=== PATIENT | female | born 1985 | race Caucasian/White ===

== ENCOUNTER 2023-06-01 19:02 | Inpatient (IN) | payer OTHER ==
[~2023-06-01] VITALS: Ht 167.6 cm; Wt 94.3 kg
[2023-06-01 19:46] LABS: BASOPHILS # (AUTO) 0.05 K/uL (0.00-0.20); BASOPHILS % (AUTO) 0.4 % (0.0-5.0); EOSINOPHILS # (AUTO) 0.25 K/uL (0.00-0.70); EOSINOPHILS % (AUTO) 1.9 % (0.0-8.0); HEMATOCRIT 39.3 % (36-48); IMMATURE GRANULOCYTE ABSOLUTE 0.05 K/uL (0-1); LYMPHOCYTES # (AUTO) 2.6 K/uL (1.0-4.8); LYMPHOCYTES % (AUTO) 19.8 % (21.0-51.0); MEAN CORPUSCULAR HEMOGLOBIN 29.5 pg (27.0-33.0); MEAN CORPUSCULAR HGB CONC 33.6 g/dL (32.0-36.0); MEAN CORPUSCULAR VOLUME 87.9 fL (79-99); MONOCYTES # (AUTO) 1.3 K/uL (0.1-1.0); MONOCYTES % (AUTO) 9.7 % (3.0-13.0); NEUTROPHILS # (AUTO) 8.8 K/uL (1.8-7.7); NEUTROPHILS % (AUTO) 67.8 % (40.0-77.0); PLATELET COUNT (AUTO) 368 K/uL (130-400); RED BLOOD CELL COUNT(AUTO) 4.47 MIL/uL (4.00-5.50); RED CELL DISTRIBUTION WIDTH 12.6 % (11.0-15.5)
[2023-06-01 19:55] LABS: CREATININE 0.7 mg/dL (0.5-1.0); MAGNESIUM 1.8 mg/dL (1.80-2.40); POTASSIUM 3.4 mmol/L (3.5-5.1)
[2023-06-01] MEDS: ONDANSETRON 4MG INJ IVP ONE ×2 (20:10→23:23)
[2023-06-01] MEDS: 0.9%NACL 1000ML 1,000 ML IV ONE (20:12)
[2023-06-01] MEDS: 0.9% NACL 500ML IV.SOLN 500 ML IV ONE (22:50)
[2023-06-01] MEDS: MORPHINE 2 MG SYG IVP ONE (23:24)
[2023-06-01 23:43] LABS: APPEARANCE,URINE CLEAR (CLEAR); BILIRUBIN,URINE NEGATIVE (NEGATIVE); COLOR,URINE LIGHT-YELLOW (YELLOW); GLUCOSE, URINE (UA) NEGATIVE (NEGATIVE); KETONES,URINE NEGATIVE (NEGATIVE); LEUKOCYTE ESTERASE ,URINE NEGATIVE Leu/uL (NEGATIVE); NITRATE,URINE NEGATIVE (NEGATIVE); OCCULT BLOOD,URINE NEGATIVE (NEGATIVE); PH,URINE 6.5 (5.0-8.0); PROTEIN,URINE NEGATIVE (NEGATIVE); UROBILINOGEN,URINE 0.2 mg/dL (0.2-1.0)
[2023-06-01 23:46] LABS: HCG,QUALITATIVE URINE NEGATIVE (NEGATIVE)
[2023-06-01 23:49] LABS: ADD UA MICROSCOPIC NO
[2023-06-02] VITALS (7 sets, daily range): BP systolic 99–126; BP diastolic 63–76; PULSE 72–82; RESP 16–20; O2SAT 97–98
[2023-06-02] MEDS ORDERED: LEVOFLOXACIN 750 MG/D5W 150ML BAG IV ONE
[2023-06-02] MEDS ORDERED: LEVE500T9 PO (00:29)
[2023-06-02] MEDS ORDERED: DiphenhydrAMINE HCL 50 MG/ML VIAL IV PRN (00:30)
[2023-06-02] MEDS ORDERED: FAMOTIDINE 20MG VIAL IV PRN (00:30)
[2023-06-02] MEDS ORDERED: ZOLPIDEM TARTRATE 5 MG TAB PO PRN (00:30)
[2023-06-02] MEDS ORDERED: LACTULOSE 20 GM/30 ML UDCUP PO PRN (00:30)
[2023-06-02] MEDS ORDERED: ACETAMINOPHEN 325 MG TAB PO PRN ×2 (00:30)
[2023-06-02] MEDS ORDERED: GUAIFENESIN-DM 200/20 MG 10 ML PO PRN (00:30)
[2023-06-02] MEDS ORDERED: MAG/ALUM/SIMETH 30 ML UDCUP PO PRN (00:30)
[2023-06-02] MEDS ORDERED: HYDRALAZINE 20MG/ML VIAL IV PRN (00:30)
[2023-06-02] MEDS ORDERED: NITROGLYCERIN 0.4 MG SL TAB SL PRN (00:30)
[2023-06-02] MEDS ORDERED: HYDROCODONE/ACETAMINOPHEN 5/325 MG TAB PO PRN (00:30)
[2023-06-02] MEDS ORDERED: TRAZ-185 PO (00:31)
[2023-06-02] MEDS ORDERED: CETI10CA5 PO (00:32)
[2023-06-02] MEDS ORDERED: FAMO20TA8 PO (00:32)
[2023-06-02] MEDS ORDERED: LACO200T4 PO (00:35)
[2023-06-02] MEDS: METRONIDAZOLE 500MG/100ML BAG IV SCH (00:43)
[2023-06-02 01:24] LABS: SQUAMOUS EPITHELIAL CELL,UR RARE /HPF (0-2)
[2023-06-02] MEDS: LEVOFLOXACIN 500 MG/D5W 100 ML 100 ML IV ONE (01:48)
[2023-06-02] MEDS: LACTATED RINGERS 1000ML 1,000 ML IV SCH (02:41)
[2023-06-02] MEDS: TRAZODONE HCL 100 MG TABLET PO SCH (03:04)
[2023-06-02] MEDS: LEVETIRACETAM 500 MG TABLET PO SCH (03:04)
[2023-06-02] MEDS: ACETAMINOPHEN WITH CODEINE 1 TAB TAB PO PRN (05:17)
[2023-06-02] MEDS: INSULIN HUMULIN R 100 UNIT/ML 3ML SQ SCH (06:39)
[2023-06-02] MEDS ORDERED: LACOSAMIDE 200 MG PO SCH (09:00)
[2023-06-02] MEDS ORDERED: FAMOTIDINE 20MG VIAL IV SCH (09:00)
[2023-06-02] MEDS: LEVETIRACETAM 1000 MG PO SCH (09:00)
[2023-06-02] MEDS: HEPARIN 5,000 UNIT VIAL SQ SCH (09:00)
[2023-06-02] MEDS ORDERED: POTASSIUM CHLORIDE 20MEQ/100ML 100 ML IV PRN (10:00)
[2023-06-02] MEDS ORDERED: MAGNESIUM 2GM PREMIX 50ML 50 ML IV PRN (10:00)
[2023-06-02] MEDS: METRONIDAZOLE 500MG/100ML BAG 100 ML IV SCH (10:53)
[2023-06-02] MEDS: CETIRIZINE HCL 5 MG TABLET PO SCH (10:57)
[2023-06-02] MEDS: FAMOTIDINE 20MG TAB PO SCH (10:57)
[2023-06-02] MEDS ORDERED: LEVETIRACETAM 500 MG/5 ML SD VIAL IV SCH ×2 (12:00→21:00)
[2023-06-02] MEDS ORDERED: PHARMACY COMMUNICATION MISC SCH (12:00)
[2023-06-02] MEDS ORDERED: COMPOUND IV MISC 1 EACH IVSOLN MISC PRN (12:30)
[2023-06-02] MEDS: LEVETIRACETAM 1,000 MG in 0.9%NACL 100ML 100 ML IV ONE (12:42)
[2023-06-02] MEDS: LACOSAMIDE 200 MG/20 ML VIAL IV ONE (12:52)
[2023-06-02] MEDS: ONDANSETRON 4MG INJ IV PRN (13:08)
[2023-06-02] MEDS: PHARMACY COMMUNICATION MISC SCH (14:00)
[2023-06-02] MEDS: KETOROLAC 30MG VIAL (30MG/ML) IM ONE (15:55)
[2023-06-02] MEDS: LEVOFLOXACIN 500 MG/D5W 100 ML 100 ML IV SCH (15:55)
[2023-06-02] MEDS: LACOSAMIDE 200 MG/20 ML VIAL IV SCH (20:46)
[2023-06-02] MEDS: TRAZODONE HCL 50 MG TAB PO SCH (20:46)
[2023-06-02] MEDS: LEVETIRACETAM 1,000 MG in 0.9%NACL 100ML IV SCH (20:47)
[2023-06-02] MEDS ORDERED: LACOSAMIDE 200 MG/20 ML VIAL IV SCH (21:00)
[2023-06-02] MEDS ORDERED: LEVETIRACETAM 1,000 MG in 0.9%NACL 100ML 100 ML IV SCH (21:00)
[2023-06-02] MEDS ORDERED: HOME MEDICATION 1 EACH IVP SCH (21:00)
[2023-06-03] VITALS: BP 93/61; PULSE 64; RESP 18
[2023-06-03] MEDS: KETOROLAC 15MG/ML VIAL (15MG/ML) IV PRN (03:33)
[2023-06-03 04:00] VITALS: BP 102/70; PULSE 75; RESP 16
[2023-06-03 05:10] LABS: BASOPHILS # (AUTO) 0.04 K/uL (0.00-0.20); BASOPHILS % (AUTO) 0.4 % (0.0-5.0); EOSINOPHILS # (AUTO) 0.27 K/uL (0.00-0.70); EOSINOPHILS % (AUTO) 2.9 % (0.0-8.0); HEMATOCRIT 32.3 % (36-48); IMMATURE GRANULOCYTE ABSOLUTE 0.03 K/uL (0-1); LYMPHOCYTES # (AUTO) 2.9 K/uL (1.0-4.8); LYMPHOCYTES % (AUTO) 31.3 % (21.0-51.0); MEAN CORPUSCULAR HEMOGLOBIN 30.2 pg (27.0-33.0); MEAN CORPUSCULAR HGB CONC 33.4 g/dL (32.0-36.0); MEAN CORPUSCULAR VOLUME 90.2 fL (79-99); MONOCYTES # (AUTO) 0.8 K/uL (0.1-1.0); MONOCYTES % (AUTO) 8.5 % (3.0-13.0); NEUTROPHILS # (AUTO) 5.2 K/uL (1.8-7.7); NEUTROPHILS % (AUTO) 56.6 % (40.0-77.0); PLATELET COUNT (AUTO) 307 K/uL (130-400); RED BLOOD CELL COUNT(AUTO) 3.58 MIL/uL (4.00-5.50); RED CELL DISTRIBUTION WIDTH 12.4 % (11.0-15.5); WHITE BLOOD COUNT (AUTO) 9.2 K/uL (4.8-10.8)
[2023-06-03 05:36] LABS: ALBUMIN 2.7 g/dL (3.5-5.0); BILIRUBIN,TOTAL 0.3 mg/dL (0.2-1.0); CREATININE 0.7 mg/dL (0.5-1.0); MAGNESIUM 1.7 mg/dL (1.80-2.40); POTASSIUM 3.6 mmol/L (3.5-5.1); TOTAL PROTEIN, SERUM 6.1 g/dL (6.0-8.3)
[2023-06-03 07:56] VITALS: BP 102/69; PULSE 75; RESP 18
[2023-06-03] MEDS: KCL 20 MEQ ERTAB PO ONE (09:55)
[2023-06-03] MEDS: MAGNESIUM 2GM PREMIX 50ML 50 ML IV PRN (09:56)
[2023-06-03] MEDS ORDERED: POTASSIUM CHLORIDE 20MEQ/100ML 100 ML IV PRN (10:00)
[2023-06-03] MEDS ORDERED: POTASSIUM CHLORIDE 10% ELIXIR 20 MEQ/15 ML UDCUP PO PRN (10:00)
[2023-06-03 12:00] VITALS: BP 106/72; PULSE 67; RESP 20
[2023-06-03] MEDS ORDERED: LEVO-70 PO (12:23)
[2023-06-03] MEDS: KCL 20 MEQ ERTAB PO PRN (13:13)
[2023-06-03 13:28] VITALS: O2SAT 98
== END 2023-06-03 15:35 | disposition home or self-care (01) | DRG 392 ==
LOC: EDH 19:02 → OBSVTOIN 23:43 → EDHIP 23:43 → 3CH 06-02 02:00
PROVIDERS: ADMIT Internal Medicine; ATTEND Internal Medicine
DX: K57.32 Diverticulitis of large intestine without perforation or abscess without bleeding (principal); E06.3 Autoimmune thyroiditis; E11.9 Type 2 diabetes mellitus without complications; E28.2 Polycystic ovarian syndrome; E66.01 Morbid (severe) obesity due to excess calories; E86.0 Dehydration; E87.6 Hypokalemia; G40.909 Epilepsy, unspecified, not intractable, without status epilepticus; N83.201 Unspecified ovarian cyst, right side; I10 Essential (primary) hypertension; Z87.820 Personal history of traumatic brain injury; Z91.040 Latex allergy status; Z96.653 Presence of artificial knee joint, bilateral; Z88.0 Allergy status to penicillin; Z88.2 Allergy status to sulfonamides; Z88.8 Allergy status to other drugs, medicaments and biological substances; Z91.041 Radiographic dye allergy status; Z68.33 Body mass index [BMI] 33.0-33.9, adult
CPT/HCPCS: 36415; 71045; 74176; 76830; 80048; 80053; 81003; 81025; 82948; 83690; 83735; 84703; 85025; 87088; 96365; 96375; G0378; J1644; J1885; J1953; J1956; J2270; J2405; J3475; J3480; J3490; G8980-CI; G8983-CI

== ENCOUNTER → 2024-06-09 | Outpatient (CLI) | payer OTHER ==
[~2024-06-09] MED LIST: CETI10CA5 PO; DIAZ10SP2 NS; FAMO20TA8 PO; FLUT16H NASAL; LACO200T4 PO; LEVE500T9 PO; LEVO137C5 PO; LINA290C PO; POLY17PO4 PO; TRAZ-185 PO
[2024-06-09 13:01] LABS: BASOPHILS # (AUTO) 0.08 K/uL (0.00-0.20); BASOPHILS % (AUTO) 0.6 % (0.0-5.0); EOSINOPHILS # (AUTO) 0.28 K/uL (0.00-0.70); EOSINOPHILS % (AUTO) 2.1 % (0.0-8.0); HEMATOCRIT 45.8 % (36-48); IMMATURE GRANULOCYTE ABSOLUTE 0.04 K/uL (0-1); LYMPHOCYTES # (AUTO) 4.9 K/uL (1.0-4.8); LYMPHOCYTES % (AUTO) 36.2 % (21.0-51.0); MEAN CORPUSCULAR HEMOGLOBIN 29.8 pg (27.0-33.0); MEAN CORPUSCULAR VOLUME 90.5 fL (79-99); MONOCYTES # (AUTO) 0.8 K/uL (0.1-1.0); MONOCYTES % (AUTO) 5.7 % (3.0-13.0); NEUTROPHILS # (AUTO) 7.5 K/uL (1.8-7.7); NEUTROPHILS % (AUTO) 55.1 % (40.0-77.0); PLATELET COUNT (AUTO) 427 K/uL (130-400); RED BLOOD CELL COUNT(AUTO) 5.06 MIL/uL (4.00-5.50); RED CELL DISTRIBUTION WIDTH 12.3 % (11.0-15.5); WHITE BLOOD COUNT (AUTO) 13.6 K/uL (4.8-10.8)
[2024-06-09 13:07] LABS: APPEARANCE,URINE CLEAR (CLEAR); BILIRUBIN,URINE NEGATIVE (NEGATIVE); COLOR,URINE COLORLESS (YELLOW); GLUCOSE, URINE (UA) NEGATIVE (NEGATIVE); KETONES,URINE NEGATIVE (NEGATIVE); LEUKOCYTE ESTERASE ,URINE NEGATIVE Leu/uL (NEGATIVE); NITRATE,URINE NEGATIVE (NEGATIVE); OCCULT BLOOD,URINE NEGATIVE (NEGATIVE); PROTEIN,URINE NEGATIVE (NEGATIVE); UROBILINOGEN,URINE 0.2 mg/dL (0.2-1.0)
[2024-06-09 13:13] LABS: ALBUMIN 4.5 g/dL (3.5-5.0); BILIRUBIN,TOTAL 0.3 mg/dL (0.2-1.0); CREATININE 0.8 mg/dL (0.5-1.0); POTASSIUM 4.7 mmol/L (3.5-5.1); TOTAL PROTEIN, SERUM 8.7 g/dL (6.0-8.3)
[2024-06-09 13:17] LABS: ADD UA MICROSCOPIC NO
== END | disposition home or self-care (01) ==
LOC: LAB 12:18
PROVIDERS: ATTEND Physician Assistant
DX: K57.92 Diverticulitis of intestine, part unspecified, without perforation or abscess without bleeding (principal)
CPT/HCPCS: 36415; 80053; 81003; 85025

== ENCOUNTER → 2024-06-18 | Outpatient (CLI) | payer OTHER ==
[~2024-06-18] MED LIST changes: +IOHEXOL-350 75 ML VIAL IV ONE
--- NOTE | 2024-06-18 11:44 | HMCIMG ---
Exam Type: CT ABDOMEN/PELVIS W/CONTRAST Clinical Information: Diverticulitis of intestine, part unspecified, without perforation or absce Comparison: June 01, 2023 Contrast: 100 cc's Isovue 370 IV, no complications or adverse reactions CT Dose Index (CTDI): 31.60 mGy Dose Length Product (DLP): 1740.80 total mGy-cm Findings: No evidence of nephro or ureterolithiasis is found. No hydronephrosis or ureteral dilatation is seen. The lung bases are clear. The stomach is unremarkable. It shows no wall thickening. No gross ulceration is seen. It is not overly distended. There are no surrounding inflammatory changes. No wall lesions are identified to suggest cancer. The spleen is unremarkable. It is not enlarged. The pancreas shows normal anatomy. It is not fatty replaced. It shows no lesions. The pancreatic duct is not dilated. The gallbladder is unremarkable. It shows no cholelithiasis. The gallbladder wall is normal in thickness. There is no pericholecystic fluid. The is no acute or chronic inflammation noted. The adrenal glands are unremarkable. There is no enlargement. No lesions are noted. The liver is unremarkable. It shows no focal masses. The appendix is unremarkable. It shows no evidence of inflammation. No appendicolith is seen. The small bowel is unremarkable. There is no evidence of dilatation to suggest obstruction. No evidence of adynamic ileus is seen. There is no small bowel wall thickening to suggest enteritis. There is diverticulosis. There is no evidence of acute inflammation to suggest diverticulitis. The colon is otherwise unremarkable. The urinary bladder is unremarkable. There is no wall thickening to suggest tumor or inflammation. There are no intraluminal calculi. There are no diverticula. There is no evidence of chronic bladder outlet obstruction. There is no evidence of urinary bladder distention to suggest urinary retention. The other pelvic structures are unremarkable. The bony and vascular structures are unremarkable for the patient's age. IMPRESSION: Diverticulosis of the colon. No acute diverticulitis. This study was performed using dose reduction techniques to include automated exposure control and/or adjustment of the mA and/or kV according to patient size.
== END | disposition home or self-care (01) ==
LOC: RAH 10:19
PROVIDERS: ATTEND Physician Assistant
DX: K57.30 Diverticulosis of large intestine without perforation or abscess without bleeding (principal)
CPT/HCPCS: 74177; Q9967